=== PATIENT | male | born 1970 | race Caucasian/White ===

== ENCOUNTER 2019-08-26 11:43 | Inpatient (IN) | payer OTHER ==
[2019-08-26 13:54] VITALS: BMI 29.5
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
[2019-08-26] MEDS ORDERED: MAGNESIUM HYDROX 2400MG/30ML ORAL SUSPENSION 30 ML CUP PO PRN (15:06)
[2019-08-26] MEDS ORDERED: MAGNESIUM CITRATE 300 ML BOTTLE PO PRN (15:06)
[2019-08-26] MEDS ORDERED: ACETAMINOPHEN 325 MG TABLET (FP) PO PRN ×2 (15:06)
[2019-08-26] MEDS ORDERED: BISMUTH SUBSALICYLATE 524 MG/30 ML UD PO PRN (15:06)
[2019-08-26] MEDS ORDERED: IBUPROFEN 400 MG TABLET (FP) PO PRN (15:06)
[2019-08-26] MEDS ORDERED: MAG HYDROX/AL HYDROX/SIMETH 30 ML UNIT-DOSE CUP PO PRN (15:06)
[2019-08-26] MEDS ORDERED: MENTHOL/PHENOL 1 EACH UD MM PRN (15:06)
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
[2019-08-26] MEDS ORDERED: METHADONE HCL 10 MG TABLET (FOR DETOX USE ONLY) PO ONE (17:00)
[2019-08-26] MEDS: cloNIDine HCL 0.1 MG TABLET PO PRN (17:25)
[2019-08-26] MEDS: MELATONIN 5 MG TABLETS PO PRN (22:32)
[2019-08-26] MEDS: diazePAM 5 MG TABLET PO PRN (22:32)
[2019-08-26] MEDS: THIAMINE HCL 100 MG TABLET (FP) PO SCH (22:33)
[2019-08-27 09:31] LABS: HEMATOCRIT 39.4 % (35.4-49); HEMOGLOBIN 13.7 GM/dL (11.7-16.9); MCH 29.8 pg (25.7-33.7); MCHC 34.9 g/dl (32.0-35.9); MEAN CELL VOLUME 85.3 fl (80-96); MEAN PLT VOLUME 9.8 fl (7.5-11.1); PLATELET COUNT 119 K/MM3 (134-434); RBC 4.62 M/mm3 (4.00-5.60); RDW 13.9 % (11.9-15.9); WHITE BLOOD COUNT 4.8 K/mm3 (4.0-10.0)
[2019-08-27 09:42] LABS: ALBUMIN 3.6 g/dl (3.4-5.0); BILIRUBIN,TOTAL 0.5 mg/dL (0.2-1); BLOOD UREA NITROGEN 9.8 mg/dL (7-18); CALCIUM 8.8 mg/dL (8.5-10.1); CREATININE 0.6 mg/dL (0.55-1.3); POTASSIUM 3.9 mmol/L (3.5-5.1); TOT PROT 6.9 g/dl (6.4-8.2)
[2019-08-27] MEDS: PRENATAL VITAMINS W/ FOLIC ACID TABLET (FP) PO SCH (09:57)
[2019-08-27] MEDS: cloNIDine HCL 0.1 MG TABLET PO PRN (09:57)
[2019-08-27] MEDS: diazePAM 5 MG TABLET PO PRN (09:57)
[2019-08-27] MEDS ORDERED: METHADONE HCL 5 MG TABLET (FOR DETOX USE ONLY) PO ONE (10:00)
--- NOTE | 2019-08-27 14:55 | PN ---
BHS COWS - Scale Resting Pulse: 1= [place] 81-100 Sweatin= Chills/Flushing Restless Observation: 1= Difficult to Sit Still Pupil Size: 1= Pupils >than Normal Bone or Joint Aches: 2= Severe Diffuse Aches Runny Nose/ Eye Tearin= None GI Upset > 30mins: 1= Stomach Cramp Tremor Observation of Outstretched Hands: 1= Tremor [place], Not Seen Yawning Observation: 0= None Anxiety or Irritability: 1=Feels Anxious/Irritable Goose Flesh Skin: 0=Smooth Skin COWS Score: 9 BHS Progress Note (SOAP) Subjective: interrupted sleep, sweats, LBP , achiness Objective: 08/27/19 14:54 Vital Signs Temperature 97.9 F 08/27/19 13:20 Pulse Rate 107 H 08/27/19 13:20 Respiratory Rate 20 08/27/19 13:20 Blood Pressure 123/84 08/27/19 13:20 O2 Sat by Pulse Oximetry (%) Laboratory Tests 08/27/19 08/27/19 08/27/19 08:20 08:20 08:20 WBC 4.8 RBC 4.62 Hgb 13.7 Hct 39.4 MCV 85.3 MCH 29.8 MCHC 34.9 RDW 13.9 Plt Count 119 L MPV 9.8 Sodium 137 Potassium 3.9 Chloride 104 Carbon Dioxide 29 Anion Gap 4 L BUN 9.8 Creatinine 0.6 Est GFR (CKD-EPI)AfAm 138.77 Est GFR (CKD-EPI)NonAf 119.73 Random Glucose 113 H Calcium 8.8 Total Bilirubin 0.5 AST 36 ALT 47 Alkaline Phosphatase 91 Total Protein 6.9 Albumin 3.6 RPR Titer Nonreactive 08/27/19 15:13 pt aox3 in nad ambulating Assessment: 08/27/19 15:13 withdrawal sx's Plan: cont. detoxc increase fluids motrin prn rest
[2019-08-27] MEDS: THIAMINE HCL 100 MG TABLET (FP) PO SCH (22:04)
[2019-08-27] MEDS: METHOCARBAMOL 500 MG TABLET PO PRN (22:04)
[2019-08-28] MEDS: hydrOXYzine PAMOATE 25 MG CAPSULE (FP) PO PRN (05:23)
--- NOTE | 2019-08-28 07:43 | PN ---
MARILUS Progress Note Note: Patient's blood pressure is B/P 169/103 and B/P 156/102 Vital Signs 08/28/19 08/28/19 08/28/19 00:30 03:30 06:30 Temperature Pulse Rate Respiratory 18 18 18 Rate Blood Pressure 08/28/19 08/28/19 06:32 07:32 Temperature 97.3 F L Pulse Rate 101 H 95 H Respiratory 18 Rate Blood Pressure 169/103 H 156/102 H ACTION: Clonidine 0.1mg tablet oral order
[2019-08-28] MEDS ORDERED: cloNIDine HCL 0.1 MG TABLET PO ONE (08:15)
[2019-08-28] MEDS ORDERED: METHADONE HCL 10 MG TABLET (FOR DETOX USE ONLY) PO ONE (10:00)
[2019-08-28] MEDS: PRENATAL VITAMINS W/ FOLIC ACID TABLET (FP) PO SCH (10:20)
--- NOTE | 2019-08-28 11:24 | PN ---
B[facility] COWS - Scale Resting Pulse: 0= AR 80 or Below Sweatin= Chills/Flushing Restless Observation: 0= Sits Still Pupil Size: 0= Normal to Room Light Bone or Joint Aches: 1= Mild Discomfort Runny Nose/ Eye Tearin= None GI Upset > 30mins: 0= None Tremor Observation of Outstretched Hands: 0= None Yawning Observation: 0= None Anxiety or Irritability: 2=Irritable/Anxious Goose Flesh Skin: 0=Smooth Skin COWS Score: 4 BHS Progress Note (SOAP) Subjective: c/o mild withdrawal symptoms. Objective: 08/28/19 11:25 Vital Signs 08/28/19 08/28/19 08/28/19 03:30 06:30 06:32 Temperature 97.3 F L Pulse Rate 101 H Respiratory 18 18 18 Rate Blood Pressure 169/103 H 08/28/19 08/28/19 07:32 09:18 Temperature 98.0 F Pulse Rate 95 H 102 H Respiratory 18 Rate Blood Pressure 156/102 H 157/96 Laboratory Last Values WBC 4.8 K/mm3 (4.0-10.0) 08/27/19 08:20 RBC 4.62 M/mm3 (4.00-5.60) 08/27/19 08:20 Hgb 13.7 GM/dL (11.7-16.9) 08/27/19 08:20 Hct 39.4 % (35.4-49) 08/27/19 08:20 MCV 85.3 fl (80-96) 08/27/19 08:20 MCH 29.8 pg (25.7-33.7) 08/27/19 08:20 MCHC 34.9 g/dl (32.0-35.9) 08/27/19 08:20 RDW 13.9 % (11.9-15.9) 08/27/19 08:20 Plt Count 119 K/MM3 (134-434) L 08/27/19 08:20 MPV 9.8 fl (7.5-11.1) 08/27/19 08:20 Sodium 137 mmol/L (136-145) 08/27/19 08:20 Potassium 3.9 mmol/L (3.5-5.1) 08/27/19 08:20 Chloride 104 mmol/L (98-107) 08/27/19 08:20 Carbon Dioxide 29 mmol/L (21-32) 08/27/19 08:20 Anion Gap 4 MMOL/L (8-16) L 08/27/19 08:20 BUN 9.8 mg/dL (7-18) 08/27/19 08:20 Creatinine 0.6 mg/dL (0.55-1.3) 08/27/19 08:20 Est GFR (CKD-EPI)AfAm 138.77 08/27/19 08:20 Est GFR (CKD-EPI)NonAf 119.73 08/27/19 08:20 Random Glucose 113 mg/dL (74-106) H 08/27/19 08:20 Calcium 8.8 mg/dL (8.5-10.1) 08/27/19 08:20 Total Bilirubin 0.5 mg/dL (0.2-1) 08/27/19 08:20 AST 36 U/L (15-37) 08/27/19 08:20 ALT 47 U/L (13-61) 08/27/19 08:20 Alkaline Phosphatase 91 U/L (45-117) 08/27/19 08:20 Total Protein 6.9 g/dl (6.4-8.2) 08/27/19 08:20 Albumin 3.6 g/dl (3.4-5.0) 08/27/19 08:20 RPR Titer Nonreactive (NONREACTIVE) 08/27/19 08:20 Labs noted. Assessment: 08/28/19 11:25 AOX3, in no acute respiratory distress. Full ROM, ambulating in the unit. Mild Withdrawal symptoms. For d/c tomorrow. Plan: continue detox. D/C in AM.
[2019-08-28] MEDS: MELATONIN 5 MG TABLETS PO PRN (22:28)
[2019-08-28] MEDS: THIAMINE HCL 100 MG TABLET (FP) PO SCH (22:28)
[2019-08-28] MEDS: diazePAM 5 MG TABLET PO PRN (22:31)
[2019-08-29] MEDS: hydrOXYzine PAMOATE 25 MG CAPSULE (FP) PO PRN (03:37)
[2019-08-29] MEDS: METHOCARBAMOL 500 MG TABLET PO PRN (03:37)
[2019-08-29] MEDS ORDERED: METHADONE HCL 5 MG TABLET (FOR DETOX USE ONLY) PO ONE (06:00)
[2019-08-29 09:09] VITALS: BP 159/96; PULSE 94; TEMP 97.4
[2019-08-29] MEDS: PRENATAL VITAMINS W/ FOLIC ACID TABLET (FP) PO SCH (09:37)
--- NOTE | 2019-08-29 11:07 | DS ---
[facility] Detox Discharge Summary Admission Date: 08/26/19 Discharge Date: 08/29/19 - History Present History: Alcohol Dependence, Opioid Dependence Additional Comments: 49 years old male admitted on 08/26/19 for alcohol and opiate withdrawal sx management treated with valium and methadone detox regimens patient has completed valium and methadone regimens and tolerated well alert oriented x 3 respiratory clear lungs bilaterally on auscultation skin warm and dry abdomen soft round no rebound tenderness - Physical Exam Results Vital Signs: order amlodipine 10 mg po daily x 14 days encourage the patient to follow up with community primary health provider for bp monitoring Pertinent Admission Physical Exam Findings: alcohol and opiate withdrawal Vital Signs Temperature 97.4 F L 08/29/19 09:09 Pulse Rate 94 H 08/29/19 09:09 Respiratory Rate 16 08/29/19 09:09 Blood Pressure 159/96 08/29/19 09:09 O2 Sat by Pulse Oximetry (%) bp elevation encourage repeat bp prior to discharge Laboratory Last Values WBC 4.8 K/mm3 (4.0-10.0) 08/27/19 08:20 RBC 4.62 M/mm3 (4.00-5.60) 08/27/19 08:20 Hgb 13.7 GM/dL (11.7-16.9) 08/27/19 08:20 Hct 39.4 % (35.4-49) 08/27/19 08:20 MCV 85.3 fl (80-96) 08/27/19 08:20 MCH 29.8 pg (25.7-33.7) 08/27/19 08:20 MCHC 34.9 g/dl (32.0-35.9) 08/27/19 08:20 RDW 13.9 % (11.9-15.9) 08/27/19 08:20 Plt Count 119 K/MM3 (134-434) L 08/27/19 08:20 MPV 9.8 fl (7.5-11.1) 08/27/19 08:20 Sodium 137 mmol/L (136-145) 08/27/19 08:20 Potassium 3.9 mmol/L (3.5-5.1) 08/27/19 08:20 Chloride 104 mmol/L (98-107) 08/27/19 08:20 Carbon Dioxide 29 mmol/L (21-32) 08/27/19 08:20 Anion Gap 4 MMOL/L (8-16) L 08/27/19 08:20 BUN 9.8 mg/dL (7-18) 08/27/19 08:20 Creatinine 0.6 mg/dL (0.55-1.3) 08/27/19 08:20 Est GFR (CKD-EPI)AfAm 138.77 08/27/19 08:20 Est GFR (CKD-EPI)NonAf 119.73 08/27/19 08:20 Random Glucose 113 mg/dL (74-106) H 08/27/19 08:20 Calcium 8.8 mg/dL (8.5-10.1) 08/27/19 08:20 Total Bilirubin 0.5 mg/dL (0.2-1) 08/27/19 08:20 AST 36 U/L (15-37) 08/27/19 08:20 ALT 47 U/L (13-61) 08/27/19 08:20 Alkaline Phosphatase 91 U/L (45-117) 08/27/19 08:20 Total Protein 6.9 g/dl (6.4-8.2) 08/27/19 08:20 Albumin 3.6 g/dl (3.4-5.0) 08/27/19 08:20 RPR Titer Nonreactive (NONREACTIVE) 08/27/19 08:20 lab noted - Treatment Hospital Course: Detox Protocol Followed, Detoxed Safely, Responded well, Discharged Condition Good, Rehab Referral Accepted Patient has Accepted [facility] Referral [facility] - Medication Discharge Medications: Ambulatory Orders Amlodipine Besylate 10 mg PO DAILY #14 tablet 08/29/19 - Diagnosis (1) Alcohol dependence with withdrawal, uncomplicated Status: Acute (2) Opioid dependence, uncomplicated Status: Acute (3) Hypertension Status: Chronic Qualifiers: Hypertension type: essential hypertension Qualified Code(s): I10 - Essential (primary) hypertension - AMA Did Patient Leave Against Medical Advice: No CIWA Score - CIWA Score Nausea/Vomitin-No Nausea/No Vomiting Muscle Tremors: 2 Anxiety: 1-Mildly Anxious Agitation: 0-Normal Activity Paroxysmal Sweats: No Perspiration Orientation: 0-Oriented Tacttile Disturbances: 0-None Auditory Disturbances: 0-None Visual Disturbances: 0-None Headache: 0-None Present CIWA-Ar Total Score: 3 COWS (PN) - Opiate Withdrawal Resting Pulse: 1= [place] 81-100 Sweatin= No chills or Flushing Restless Observation: 0= Sits Still Pupil Size: 0= Normal to Room Light Bone or Joint Aches: 0= None Runny Nose/ Eye Tearin= None GI Upset > 30mins: 0= None Tremor Observation of Outstretched Hands: 1= Tremor [place], Not Seen Yawning Observation: 0= None Anxiety or Irritability: 1=Feels Anxious/Irritable Goose Flesh Skin: 0=Smooth Skin COWS Score: 3
== END 2019-08-29 10:40 | disposition home or self-care (01) | DRG 897 ==
LOC: YASAS 11:43 → Y3N 16:23
PROVIDERS: ADMIT Allergy & Immunology; ATTEND Allergy & Immunology
PROC: HZ2ZZZZ Detoxification Services for Substance Abuse Treatment (ICD-10-PCS; principal; 2019-08-26)
DX: F11.23 Opioid dependence with withdrawal (principal); F10.230 Alcohol dependence with withdrawal, uncomplicated; F17.210 Nicotine dependence, cigarettes, uncomplicated; I10 Essential (primary) hypertension; Z91.5 Personal history of self-harm
CPT/HCPCS: 36415; 80053; 85027; 86593; J0735